=== PATIENT | male | born 2000 | race African-American/Black ===

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

== ENCOUNTER 2018-01-03 00:12 | Emergency (ER) | payer MEDICAID ==
[2018-01-03 00:28] VITALS: BP 136/79
[2018-01-03] MEDS ORDERED: HYDROCODONE/ACETAMINOPHEN 5-325 MG TABLET PO ONE (01:07)
[2018-01-03] MEDS ORDERED: LIDOCAINE 1%/EPINEPHRINE INJ 20 ML VIAL INJ ONE (01:07)
[2018-01-03] MEDS ORDERED: DIPH/PERTUSS(ACELL)/TETANUS VAC/PF 0.5 ML SYR (>=10YO) IM ONE (01:08)
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
== END 2018-01-03 02:10 | disposition home or self-care (01) ==
LOC: ER 00:12
PROC: 0HQDXZZ Repair Right Lower Arm Skin, External Approach (ICD-10-PCS; principal; 2018-01-03)
DX: S51.811A Laceration without foreign body of right forearm, initial encounter (principal); M79.601 Pain in right arm; M79.89 Other specified soft tissue disorders; W22.8XXA Striking against or struck by other objects, initial encounter; F17.200 Nicotine dependence, unspecified, uncomplicated
CPT/HCPCS: 99283; 73090; 90715; 12002; J3490